=== PATIENT | male | born 1965 | race Hispanic/Latino ===

== ENCOUNTER 2020-10-29 16:34 | Emergency (ER) | payer OTHER ==
[~2020-10-29] VITALS: Ht 170.2 cm; Wt 81.6 kg
[2020-10-29] MEDS ORDERED: KETOROLAC TROMETHAMINE 60 MG/2 ML VIAL IM ONE (18:05)
[2020-10-29 18:38] LABS: CLARITY,URINE CLEAR (CLEAR); COLOR,URINE YELLOW (YELLOW); KETONES,URINE NEGATIVE (NEGATIVE); LEUKOCYTE ESTERASE ,URINE NEGATIVE (NEGATIVE); NITRITE,URINE NEGATIVE (NEGATIVE); PROTEIN,URINE DIPSTICK NEGATIVE (NEGATIVE); URINE UROBILINOGEN 1 mg/dL (0.2 - 1)
[2020-10-29 18:44] LABS: BACTERIA,URINE RARE /HPF; EPITHELIAL CELLS,URINE FEW /LPF; RBC,URINE 0-5 /HPF (0-5); WBC,URINE (MAN) 0-5 /HPF (0-5)
[2020-10-29 19:09] VITALS: BP 107/74
== END 2020-10-29 19:10 | disposition home or self-care (01) ==
LOC: ER 17:07
DX: N50.812 Left testicular pain (principal); N43.3 Hydrocele, unspecified; I86.1 Scrotal varices
CPT/HCPCS: 76870; 81001; 93976; 99283; J1885

== ENCOUNTER 2021-02-01 08:13 | Emergency (ER) | payer OTHER ==
[~2021-02-01] VITALS: Ht 170.2 cm; Wt 81.6 kg
[2021-02-01 08:54] LABS: BASOPHILS # (AUTO) 0.1 (0.0-0.1); BASOPHILS % 1.2 % (0.0-1.0); EOSINOPHILS # (AUTO) 0.1 (0.0-0.4); EOSINOPHILS % 1.6 % (0.0-6.0); HEMATOCRIT 49.1 % (38.2-49.6); HEMOGLOBIN 16.4 g/dL (14.0-18.0); LYMPHOCYTES # (AUTO) 1.1 (1.0-3.2); LYMPHOCYTES % 16.6 % (18.0-39.1); MEAN CORPUSCULAR HEMOGLOBIN 30.3 pg (28-32); MEAN CORPUSCULAR HGB CONC 33.4 g/dL (31-35); MEAN CORPUSCULAR VOLUME 90.8 fL (81-99); MONOCYTES # (AUTO) 0.6 (0.2-0.8); MONOCYTES % 8.2 % (4.4-11.3); NEUTROPHILS # (AUTO) 4.9 (2.1-6.9); NEUTROPHILS % 72.1 % (38.7-80.0); PLATELET COUNT 281 x10e3/uL (140-360); RED BLOOD COUNT 5.41 x10e6/uL (4.3-5.7); RED CELL DISTRIBUTION WIDTH 12.3 % (11.7-14.4)
[2021-02-01 09:10] LABS: ALANINE AMINOTRANSFERASE 17 IU/L (0-55); ALBUMIN 4.1 g/dL (3.5-5.0); ALBUMIN/GLOBULIN RATIO 1.3 (0.8-2.0); ALKALINE PHOSPHATASE 70 IU/L (40-150); ANION GAP 11.3 mmol/L (8-16); BLOOD UREA NITROGEN 16 mg/dL (7-26); BUN/CREATININE RATIO 18 (6-25); CALCIUM 8.7 mg/dL (8.4-10.2); CARBON DIOXIDE 26 mmol/L (22-29); CHLORIDE 105 mmol/L (98-107); CREATININE, SERUM 0.91 mg/dL (0.72-1.25); EST GLOMERULAR FILTRATION RATE > 60 ML/MIN (60-); GLUCOSE 101 mg/dL (74-118); POTASSIUM 4.3 mmol/L (3.5-5.1); SODIUM 138 mmol/L (136-145)
[2021-02-01 09:22] VITALS: BP 130/62
== END 2021-02-01 09:20 | disposition home or self-care (01) ==
LOC: ER 09:03
DX: R63.4 Abnormal weight loss (principal); I10 Essential (primary) hypertension; E78.5 Hyperlipidemia, unspecified; M54.9 Dorsalgia, unspecified; G89.29 Other chronic pain
CPT/HCPCS: 36415; 80053; 85025; 99283

== ENCOUNTER 2021-02-12 10:06 | Emergency (ER) | payer MEDICARE, OTHER ==
[~2021-02-12] VITALS: Ht 170.2 cm; Wt 81.6 kg
[2021-02-12] MEDS ORDERED: METHYLPREDNISOLONE SOD SUCC 125 MG/2ML VIAL IM ONE (10:30)
[2021-02-12] MEDS ORDERED: KETOROLAC TROMETHAMINE 60 MG/2 ML VIAL IM ONE (10:30)
[2021-02-12] MEDS ORDERED: DIAZEPAM 5 MG TAB PO ONE (10:30)
[2021-02-12] MEDS ORDERED: METHOCARBAMOL750 MG PO (11:22)
[2021-02-12] MEDS ORDERED: NAPROXEN250 MG PO (11:51)
[2021-02-12] MEDS ORDERED: PREDNISONE20 MG PO (11:51)
[2021-02-12 12:32] VITALS: BP 130/74
== END 2021-02-12 12:00 | disposition home or self-care (01) ==
LOC: ER 10:24
DX: M54.5 Low back pain (principal); G89.29 Other chronic pain; I10 Essential (primary) hypertension; E78.5 Hyperlipidemia, unspecified
CPT/HCPCS: 99282; J1885; J2930

== ENCOUNTER 2021-03-29 08:00 | Emergency (ER) | payer MEDICARE ==
[~2021-03-29] VITALS: Ht 170.2 cm; Wt 81.6 kg
[~2021-03-29 08:00] MED LIST: METHOCARBAMOL750 MG PO; NAPROXEN250 MG PO; PREDNISONE20 MG PO
[2021-03-29] MEDS ORDERED: KETOROLAC TROMETHAMINE 60 MG/2 ML VIAL IM ONE (08:15)
[2021-03-29] MEDS ORDERED: METHYLPREDNISOLONE SOD SUCC 125 MG/2ML VIAL IM ONE (08:15)
[2021-03-29] MEDS: METHYLPREDNISOLONE SOD SUCC 125 MG/2ML VIAL IM ONE (08:32)
[2021-03-29] MEDS: KETOROLAC TROMETHAMINE 60 MG/2 ML VIAL IM ONE (08:32)
[2021-03-29] MEDS: LIDOCAINE 4% PATCH TP SCH (08:32)
[2021-03-29] MEDS: ALBUTEROL SULF 0.083% NEB SOLN 3 ML NEB NEB STA (08:55)
[2021-03-29] MEDS ORDERED: VALIUM5 MG PO (08:56)
[2021-03-29] MEDS ORDERED: LIDOPATCH1 EACH TOP (08:56)
== END 2021-03-29 09:22 | disposition home or self-care (01) ==
LOC: ER 08:45
DX: M54.6 Pain in thoracic spine (principal); G89.29 Other chronic pain; I10 Essential (primary) hypertension; E78.5 Hyperlipidemia, unspecified; Z79.1 Long term (current) use of non-steroidal anti-inflammatories (NSAID); Z79.52 Long term (current) use of systemic steroids; Z79.899 Other long term (current) drug therapy
CPT/HCPCS: 71046; 94640; 99283; J1885; J2930

== ENCOUNTER 2021-05-23 09:50 | Emergency (ER) | payer MEDICARE ==
[~2021-05-23] VITALS: Ht 170.2 cm; Wt 81.6 kg
[~2021-05-23 09:50] MED LIST changes: +LIDOPATCH1 EACH TOP; +VALIUM5 MG PO
[2021-05-23] MEDS ORDERED: KETOROLAC TROMETHAMINE 60 MG/2 ML VIAL IM ONE (10:15)
[2021-05-23] MEDS ORDERED: HYDROCODONE/APAP 7.5MG-325MG 1 EA TAB PO NR (10:30)
== END 2021-05-23 10:30 | disposition home or self-care (01) ==
LOC: ER 10:27
DX: M54.50 Low back pain, unspecified (principal); G89.29 Other chronic pain; I10 Essential (primary) hypertension; E78.5 Hyperlipidemia, unspecified
CPT/HCPCS: 99282; J1885

== ENCOUNTER 2021-07-14 07:50 | Emergency (ER) | payer MEDICARE ==
[~2021-07-14] VITALS: Ht 170.2 cm; Wt 81.6 kg
[2021-07-14] MEDS ORDERED: AUGMENTIN 500-1 EACH PO (07:58)
== END 2021-07-14 08:15 | disposition home or self-care (01) ==
LOC: ER 08:00
DX: H66.92 Otitis media, unspecified, left ear (principal); I10 Essential (primary) hypertension; E78.5 Hyperlipidemia, unspecified; M54.9 Dorsalgia, unspecified; G89.29 Other chronic pain
CPT/HCPCS: 99283

== ENCOUNTER 2021-08-17 11:39 | Emergency (ER) | payer MEDICARE ==
[~2021-08-17] VITALS: Ht 170.2 cm; Wt 81.6 kg
[~2021-08-17 11:39] MED LIST changes: +AUGMENTIN 500-1 EACH PO
[2021-08-17] MEDS ORDERED: ZYRTEC10 M3 PO (12:00)
== END 2021-08-17 13:02 | disposition home or self-care (01) ==
LOC: ER 12:00
DX: J34.9 Unspecified disorder of nose and nasal sinuses (principal); I10 Essential (primary) hypertension
CPT/HCPCS: 99283

== ENCOUNTER 2021-10-10 08:05 | Emergency (ER) | payer MEDICARE, OTHER ==
[~2021-10-10] VITALS: Ht 170.2 cm; Wt 81.6 kg
[~2021-10-10 08:05] MED LIST changes: +ZYRTEC10 M3 PO
[2021-10-10] MEDS ORDERED: TETRACAINE HCL 0.5% OPTH SOLN 4 ML BTL OP ONE (08:15)
[2021-10-10] MEDS ORDERED: FLUORESCEIN SOD(OPTH) 1 MG STRP OP ONE (08:15)
[2021-10-10] MEDS ORDERED: FLUORESCEIN SOD(OPTH) 1 MG STRP ONE (08:45)
[2021-10-10] MEDS ORDERED: TETANUS/DIPHTHERIA TOX ADULT 0.5 ML SYR IM ONE (09:00)
[2021-10-10] MEDS ORDERED: CYCLOPENTOLATE HCL 1% OPTH SOLN 2ML BTL OP ONE (09:00)
[2021-10-10] MEDS ORDERED: TOBRAMYCIN 0.3% OPTH OINT 3.5 GM TUBE OP ONE (09:00)
== END 2021-10-10 09:18 | disposition home or self-care (01) ==
LOC: ER 08:23
DX: H57.11 Ocular pain, right eye (principal); T15.91XA Foreign body on external eye, part unspecified, right eye, initial encounter; I10 Essential (primary) hypertension; E78.5 Hyperlipidemia, unspecified; M54.9 Dorsalgia, unspecified; G89.29 Other chronic pain
CPT/HCPCS: 90714; 99283

== ENCOUNTER 2021-11-04 19:26 | Emergency (ER) | payer MEDICARE, OTHER ==
[~2021-11-04] VITALS: Ht 170.2 cm; Wt 81.6 kg
[2021-11-04] MEDS ORDERED: KETOROLAC TROMETHAMINE 60 MG/2 ML VIAL IM ONE (21:45)
== END 2021-11-04 21:42 | disposition home or self-care (01) ==
LOC: ER 19:54
DX: M54.41 Lumbago with sciatica, right side (principal); I10 Essential (primary) hypertension; E78.5 Hyperlipidemia, unspecified; G89.29 Other chronic pain
CPT/HCPCS: 99282; J1885

== ENCOUNTER 2022-01-30 09:53 | Emergency (ER) | payer MEDICARE, OTHER ==
[~2022-01-30] VITALS: Ht 170.2 cm; Wt 81.6 kg
[2022-01-30] MEDS ORDERED: KETOROLAC TROMETHAMINE 60 MG/2 ML VIAL IM ONE (10:45)
== END 2022-01-30 10:16 | disposition home or self-care (01) ==
LOC: ER 10:05
DX: M54.41 Lumbago with sciatica, right side (principal); M62.830 Muscle spasm of back; I10 Essential (primary) hypertension; E78.5 Hyperlipidemia, unspecified; G89.29 Other chronic pain
CPT/HCPCS: 99282; J1885

== ENCOUNTER 2022-06-13 10:57 | Emergency (ER) | payer MEDICARE, OTHER ==
[~2022-06-13] VITALS: Ht 170.2 cm; Wt 79.4 kg
[2022-06-13] MEDS ORDERED: METHOCARBAMOL750 MG PO (11:34)
[2022-06-13] MEDS ORDERED: MEDROL4 M2 PO (11:34)
[2022-06-13] MEDS ORDERED: KETOROLAC TROME10 MG PO (11:34)
[2022-06-13] MEDS ORDERED: KETOROLAC TROMETHAMINE 30 MG/ML VIAL IM ONE (11:45)
[2022-06-13] MEDS ORDERED: DEXAMETHASONE SOD PHOS 10 MG/1 ML VIAL IM ONE (11:45)
[2022-06-13] MEDS ORDERED: DEXAMETHASONE SOD PHOS 10 MG/1 ML VIAL ONE (11:50)
[2022-06-13] MEDS ORDERED: KETOROLAC TROMETHAMINE 30 MG/ML VIAL ONE (11:51)
== END 2022-06-13 11:43 | disposition home or self-care (01) ==
LOC: ER 11:12
DX: M54.41 Lumbago with sciatica, right side (principal); G89.29 Other chronic pain; I10 Essential (primary) hypertension; E78.5 Hyperlipidemia, unspecified
CPT/HCPCS: 99282; J1100; J1885

== ENCOUNTER 2022-07-26 14:19 | Emergency (ER) | payer MEDICARE ==
[~2022-07-26] VITALS: Ht 170.2 cm; Wt 79.4 kg
[~2022-07-26 14:19] MED LIST changes: +KETOROLAC TROME10 MG PO; +MEDROL4 M2 PO
[2022-07-26] MEDS ORDERED: KETOROLAC TROMETHAMINE 30 MG/ML VIAL IM STA (14:48)
[2022-07-26] MEDS ORDERED: KETOROLAC TROME10 MG PO (14:57)
[2022-07-26] MEDS ORDERED: DEXAMETHASONE SOD PHOS 10 MG/1 ML VIAL IM ONE (15:00)
[2022-07-26] MEDS ORDERED: KETOROLAC TROMETHAMINE 30 MG/ML VIAL ONE (15:04)
[2022-07-26] MEDS ORDERED: DEXAMETHASONE SOD PHOS 10 MG/1 ML VIAL ONE (15:04)
== END 2022-07-26 15:11 | disposition home or self-care (01) ==
LOC: ER 14:48
DX: R25.2 Cramp and spasm (principal); M54.50 Low back pain, unspecified; I10 Essential (primary) hypertension
CPT/HCPCS: 99282; J1100; J1885

== ENCOUNTER 2023-01-03 08:45 | Emergency (ER) | payer MEDICARE ==
[~2023-01-03] VITALS: Ht 170.2 cm; Wt 79.4 kg
[2023-01-03 08:59] VITALS: O2SAT 99
[2023-01-03 09:23] LABS: CLARITY,URINE CLEAR (CLEAR); COLOR,URINE YELLOW (YELLOW); NITRITE,URINE NEGATIVE (NEGATIVE); PROTEIN,URINE DIPSTICK NEGATIVE (NEGATIVE); URINE UROBILINOGEN 0.2 mg/dL (0.2 - 1)
[2023-01-03 09:24] LABS: KETONES,URINE TRACE (NEGATIVE); LEUKOCYTE ESTERASE ,URINE NEGATIVE (NEGATIVE)
[2023-01-03 09:40] LABS: BACTERIA,URINE FEW /HPF; EPITHELIAL CELLS,URINE FEW /LPF; RBC,URINE 0-5 /HPF (0-5)
[2023-01-03] MEDS ORDERED: METHOCARBAMOL500 MG PO (10:08)
[2023-01-03] MEDS ORDERED: KETOROLAC TROMETHAMINE 60 MG/2 ML VIAL IM ONE (10:15)
== END 2023-01-03 10:14 | disposition home or self-care (01) ==
LOC: ER 08:53
DX: S39.012A Strain of muscle, fascia and tendon of lower back, initial encounter (principal); R10.31 Right lower quadrant pain; G89.29 Other chronic pain; I10 Essential (primary) hypertension; E78.5 Hyperlipidemia, unspecified
CPT/HCPCS: 81001; 99283; J1885

== ENCOUNTER 2024-09-15 08:59 | Emergency (ER) | payer MEDICARE ==
[~2024-09-15] VITALS: Ht 170.2 cm; Wt 79.4 kg
[~2024-09-15 08:59] MED LIST changes: +METHOCARBAMOL500 MG PO
[2024-09-15 09:05] VITALS: PULSE 68; RESP 16; TEMP 98
[2024-09-15] MEDS: LIDOCAINE 4% PATCH TP STA (09:58)
[2024-09-15] MEDS: DEXAMETHASONE 4 MG TAB PO STA (09:59)
[2024-09-15] MEDS: ACETAMINOPHEN 325 MG TAB PO ONE (10:00)
[2024-09-15] MEDS: KETOROLAC TROMETHAMINE 30 MG/ML VIAL IM STA (10:00)
[2024-09-15] MEDS ORDERED: NEURONTIN100 MG PO (10:09)
[2024-09-15 10:38] VITALS: BP 110/85; PULSE 81; RESP 17; O2SAT 99
== END 2024-09-15 10:40 | disposition home or self-care (01) ==
LOC: ER 09:38
DX: M54.50 Low back pain, unspecified (principal); M79.18 Myalgia, other site; G89.29 Other chronic pain; I10 Essential (primary) hypertension; E78.5 Hyperlipidemia, unspecified
CPT/HCPCS: 99282; J1885; J8540

== ENCOUNTER 2025-02-27 12:57 | Emergency (ER) | payer MEDICARE ==
[~2025-02-27] VITALS: Ht 170.2 cm; Wt 83.9 kg
[~2025-02-27 12:57] MED LIST changes: +NEURONTIN100 MG PO
[2025-02-27 15:00] VITALS: PULSE 82; RESP 16; TEMP 98.8; O2SAT 99
[2025-02-27] MEDS ORDERED: TRIAMCINOLONE A15 G1 TOP (15:28)
== END 2025-02-27 15:40 | disposition home or self-care (01) ==
LOC: ER 15:20
DX: L30.9 Dermatitis, unspecified (principal); I10 Essential (primary) hypertension; E78.5 Hyperlipidemia, unspecified; G89.29 Other chronic pain; M54.9 Dorsalgia, unspecified
CPT/HCPCS: 99282

== ENCOUNTER 2025-05-02 06:29 | Emergency (ER) | payer MEDICARE ==
[~2025-05-02] VITALS: Ht 170.2 cm; Wt 83.9 kg
[~2025-05-02 06:29] MED LIST changes: +TRIAMCINOLONE A15 G1 TOP
[2025-05-02 06:38] VITALS: TEMP 99.1
[2025-05-02] MEDS: KETOROLAC TROMETHAMINE 60 MG/2 ML VIAL IM ONE (07:22)
[2025-05-02 07:24] LABS: STREPTOCOCCUS GRP A ANTIGEN NEGATIVE (NEGATIVE)
[2025-05-02 07:26] VITALS: PULSE 72; RESP 18
[2025-05-02 07:29] LABS: CORONAVIRUS COVID-19 AG NEGATIVE (NEGATIVE)
[2025-05-02] MEDS ORDERED: VENTOLIN HFA18 GM INH (07:43)
[2025-05-02 08:08] VITALS: BP 107/79; PULSE 69; RESP 18; TEMP 98.4; O2SAT 96
== END 2025-05-02 08:10 | disposition home or self-care (01) ==
LOC: ER 06:31
DX: R05.9 Cough, unspecified (principal); J98.8 Other specified respiratory disorders; B97.89 Other viral agents as the cause of diseases classified elsewhere; I10 Essential (primary) hypertension; E78.5 Hyperlipidemia, unspecified; M54.9 Dorsalgia, unspecified; G89.29 Other chronic pain; Z11.52 Encounter for screening for COVID-19
CPT/HCPCS: 83518; 87070; 87426; 99283; J1885

== ENCOUNTER 2025-06-11 15:28 | Emergency (ER) | payer MEDICARE ==
[~2025-06-11] VITALS: Ht 170.2 cm; Wt 86.2 kg
[~2025-06-11 15:28] MED LIST changes: +VENTOLIN HFA18 GM INH
[2025-06-11 15:46] VITALS: PULSE 94; RESP 16; TEMP 98.6
[2025-06-11] MEDS ORDERED: ORPHENADRINE C100 MG PO (19:23)
[2025-06-11] MEDS ORDERED: MEDROL4 M2 PO (19:23)
[2025-06-11] MEDS: DEXAMETHASONE SOD PHOS 10 MG/1 ML VIAL IM ONE (19:54)
[2025-06-11 19:55] VITALS: BP 116/90; PULSE 73; RESP 16; O2SAT 98
== END 2025-06-11 19:57 | disposition home or self-care (01) ==
LOC: ER 18:36
DX: M54.50 Low back pain, unspecified (principal); G89.29 Other chronic pain; I10 Essential (primary) hypertension; E78.5 Hyperlipidemia, unspecified
CPT/HCPCS: 99283; J1100